=== PATIENT | female | born 1965 | race Caucasian/White ===

== ENCOUNTER 2019-03-06 15:52 | Emergency (ER) | payer MEDICAID ==
[~2019-03-06] VITALS: Ht 175.3 cm; Wt 59.1 kg
[2019-03-06 15:57] VITALS: BP 140/105
[2019-03-06] MEDS ORDERED: NAPR-56 PO (16:02)
[2019-03-06] MEDS ORDERED: PENI250T2 PO (16:02)
[2019-03-06] MEDS ORDERED: HYDROcodone/acetaminophen 5mg/325mg tablet PO ONE (16:05)
== END 2019-03-06 16:48 | disposition home or self-care (01) ==
LOC: ER 15:53
DX: K00.6 Disturbances in tooth eruption (principal); K08.89 Other specified disorders of teeth and supporting structures; Z88.1 Allergy status to other antibiotic agents
CPT/HCPCS: 99283